=== PATIENT | male | born 1935 | race Caucasian/White ===

== ENCOUNTER → 2020-02-28 | Outpatient (CLI) | payer BC ==
--- NOTE | 2020-02-28 09:52 | RAD ---
EXAM: Pelvis and right hip, 4 views. HISTORY: Pain. COMPARISON: None. FINDINGS: Frontal views of the pelvis and frontal and frog-leg views of the right hip are obtained. T here is a right hip arthroplasty. There is eccentric positioning of the femoral head arthroplasty com ponent within the acetabular cup, suggesting asymmetric liner wear. There is lucency surrounding the inferior acetabular cup of uncertain chronicity. 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 There is degenerative change at the lumbosacral junction. There are surgical clips overlying the pelvis. IMPRESSION: 1. Eccentric positioning of a right femoral head arthroplasty component within the acetabular cup, li maricruz due to asymmetric liner wear. 2. 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 Electronically signed by: Carmina Elliott MD (02/28/2020 9:50 AM) [id number]
== END ==
LOC: DXRAD 09:17
PROVIDERS: ATTEND Specialist
DX: M25.551 Pain in right hip (principal)
CPT/HCPCS: 73502